=== PATIENT | male | born 2000 | race Hispanic/Latino ===

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

== ENCOUNTER 2021-09-24 14:43 | Inpatient (IN) | payer MEDICAID, OTHER ==
[~2021-09-24] VITALS: Ht 182.9 cm; Wt 104.3 kg
[2021-09-24] MEDS ORDERED: 0.9%NACL 1000ML 1,000 ML IV ONE (15:00)
[2021-09-24 15:08] LABS: BASOPHILS % (AUTO) 0.3 % (0.0-5.0); EOSINOPHILS % (AUTO) 0.1 % (0.0-8.0); HEMATOCRIT 42.4 % (36-48); LYMPHOCYTES % (AUTO) 12.2 % (21.0-51.0); MEAN CORPUSCULAR HGB CONC 35.4 g/dL (32.0-36.0); MONOCYTES % (AUTO) 5.6 % (3.0-13.0); NEUTROPHILS % (AUTO) 81.4 % (40.0-77.0); PLATELET COUNT (AUTO) 195 K/uL (130-400); RED BLOOD CELL COUNT(AUTO) 5.17 MIL/uL (4.00-5.50); RED CELL DISTRIBUTION WIDTH 12.1 % (11.0-15.5); WHITE BLOOD COUNT (AUTO) 15.8 K/uL (4.8-10.8)
[2021-09-24 15:17] LABS: CREATININE 0.9 mg/dL (0.5-1.5); POTASSIUM 3.9 mmol/L (3.5-5.1)
[2021-09-24 15:22] LABS: BILIRUBIN,TOTAL 1.4 mg/dL (0.2-1.0); TOTAL PROTEIN, SERUM 7.5 g/dL (6.0-8.3)
[2021-09-24] MEDS ORDERED: FAMOTIDINE 20MG VIAL IV ONE (16:00)
[2021-09-24] MEDS ORDERED: ONDANSETRON 4MG INJ IVP ONE ×2 (16:00→18:00)
[2021-09-24] MEDS ORDERED: MORPHINE 4 MG SYG IVP ONE ×2 (16:00→18:30)
[2021-09-24] MEDS ORDERED: IOHEXOL-350 75 ML VIAL IV ONE (16:47)
[2021-09-24] MEDS ORDERED: ZOSYN 3.375GM +NS 50ML IV SCH (17:30)
[2021-09-24] MEDS ORDERED: ZOSYN 3.375GM+NS 50ML 50 ML ONE (17:35)
[2021-09-24] MEDS ORDERED: 0.9%NACL 50ML 50 ML IV ONE (17:35)
[2021-09-24 17:51] LABS: APPEARANCE,URINE Clear (CLEAR); BILIRUBIN,URINE Negative (NEGATIVE); COLOR,URINE Yellow (YELLOW); GLUCOSE, URINE (UA) Negative (NEGATIVE); KETONES,URINE Negative (NEGATIVE); LEUKOCYTE ESTERASE ,URINE Negative (NEGATIVE); NITRATE,URINE Negative (NEGATIVE); OCCULT BLOOD,URINE Negative (NEGATIVE); PH,URINE 7.5 (5.0-8.0); PROTEIN,URINE Negative (NEGATIVE); UROBILINOGEN,URINE 0.2 mg/dL (0.2-1.0)
[2021-09-24] MEDS ORDERED: ONDANSETRON 4MG INJ ONE (18:00)
[2021-09-24] MEDS ORDERED: MORPHINE 4 MG SYG ONE (18:03)
[2021-09-24] MEDS ORDERED: MORPHINE 4 MG SYG IV PRN (20:00)
[2021-09-24] MEDS: ZOSYN 3.375GM+NS 50ML 50 ML IV SCH (21:00)
[2021-09-24] MEDS: LACTATED RINGERS 1000ML 1,000 ML IV SCH (21:14)
[2021-09-24] MEDS: FAMOTIDINE 20MG VIAL IV SCH (21:14)
[2021-09-24] MEDS: ONDANSETRON 4MG INJ IV PRN (21:29)
[2021-09-24 22:37] VITALS: BP 111/72
[2021-09-25] VITALS (28 sets, daily range): BP systolic 90–126; BP diastolic 40–82
[2021-09-25] MEDS: MORPHINE 2 MG SYG IV PRN (03:39)
[2021-09-25 04:37] LABS: BASOPHILS % (AUTO) 0.1 % (0.0-5.0); EOSINOPHILS % (AUTO) 0.2 % (0.0-8.0); HEMATOCRIT 41.6 % (42-54); MEAN CORPUSCULAR HEMOGLOBIN 28.6 pg (27.0-33.0); MEAN CORPUSCULAR HGB CONC 34.4 g/dL (32.0-36.0); MEAN CORPUSCULAR VOLUME 83.2 fL (80-100); MONOCYTES % (AUTO) 5.2 % (3.0-13.0); PLATELET COUNT (AUTO) 163 K/uL (130-400); RED CELL DISTRIBUTION WIDTH 12.5 % (11.0-15.5); WHITE BLOOD COUNT (AUTO) 20.6 K/uL (4.8-10.8)
[2021-09-25] MEDS: ZOSYN 3.375GM+NS 50ML 50 ML IV SCH ×3 (04:38→20:48)
[2021-09-25 04:50] LABS: INR 1.17 (0.85-1.15); PROTHROMBIN TIME 12.6 SEC (9.6-11.6)
[2021-09-25] MEDS: LACTATED RINGERS 1000ML 1,000 ML IV SCH ×4 (04:50→23:43)
[2021-09-25 04:51] LABS: PARTIAL THROMBOPLASTIN TIME 27.2 SEC (26.3-35.5)
[2021-09-25 04:55] LABS: CREATININE 1.3 mg/dL (0.5-1.5); MAGNESIUM 1.5 mg/dL (1.80-2.40); PHOSPHORUS 3.1 mg/dL (2.5-4.9); POTASSIUM 3.6 mmol/L (3.5-5.1)
[2021-09-25] MEDS: ONDANSETRON 4MG INJ IV PRN (06:06)
[2021-09-25] MEDS: FAMOTIDINE 20MG VIAL IV SCH ×2 (09:00→20:48)
[2021-09-25] MEDS ORDERED: BUPIVACAINE/PF 0.25% 30ML VIAL IJ ONE (09:06)
[2021-09-25] MEDS ORDERED: SUCCINYLCHOLINE CHLORIDE 20 MG/ML 10 ML VIAL ONE (09:07)
[2021-09-25] MEDS ORDERED: FENTANYL CITRATE PF 50 MCG/1 ML 2ML VIAL ONE ×2 (09:07→09:08)
[2021-09-25] MEDS ORDERED: LIDOCAINE PF 100MG/5ML (2%) SYRINGE 5ML ONE (09:07)
[2021-09-25] MEDS ORDERED: PROPOFOL 10 MG/ML 20ML VIAL IV ONE (09:07)
[2021-09-25] MEDS ORDERED: MIDAZOLAM HCL 1 MG/ML 2ML VIAL ONE (09:07)
[2021-09-25] MEDS ORDERED: NEOSTIGMINE 5MG/5ML SYR IV ONE (09:10)
[2021-09-25] MEDS ORDERED: GLYCOPYRROLATE 0.2 MG/ML 5 ML VIAL ONE (09:11)
[2021-09-25] MEDS ORDERED: ROCURONIUM BROMIDE 10MG/1ML 5ML VL ONE (09:11)
[2021-09-25] MEDS ORDERED: ONDANSETRON 4MG INJ ONE (09:18)
[2021-09-25] MEDS ORDERED: PHENYLEPHRINE HCL 10 MG/ML 1ML VIAL IV ONE (09:24)
[2021-09-25] MEDS ORDERED: ESMOLOL HCL 10 MG/ML 10 ML VIAL ONE (09:56)
[2021-09-25] MEDS ORDERED: KETOROLAC 30MG VIAL (30MG/ML) ONE (10:16)
[2021-09-25] MEDS ORDERED: MEPERIDINE-PF 25 MG/ML SYG ONE (10:16)
[2021-09-25] MEDS ORDERED: MEPERIDINE-PF 25 MG/ML SYG IV PRN (10:30)
[2021-09-25] MEDS ORDERED: ONDANSETRON 4MG INJ IVP PRN (10:30)
[2021-09-25] MEDS ORDERED: MAGNESIUM 2GM PREMIX 50ML 50 ML IV PRN (17:00)
[2021-09-25] MEDS ORDERED: ACETAMINOPHEN 325 MG TAB ONE (20:45)
[2021-09-25] MEDS ORDERED: ACETAMINOPHEN 325 MG TAB PO PRN (21:00)
[2021-09-26] MEDS: LACTATED RINGERS 1000ML 1,000 ML IV SCH (02:07)
[2021-09-26 03:49] VITALS: BP 125/59
[2021-09-26] MEDS: ZOSYN 3.375GM+NS 50ML 50 ML IV SCH ×2 (04:06→13:00)
[2021-09-26] MEDS: MORPHINE 2 MG SYG IV PRN (04:06)
[2021-09-26 05:13] LABS: BASOPHILS % (AUTO) 0.4 % (0.0-5.0); EOSINOPHILS % (AUTO) 0.8 % (0.0-8.0); HEMATOCRIT 38.3 % (42-54); LYMPHOCYTES % (AUTO) 9.7 % (21.0-51.0); MEAN CORPUSCULAR HEMOGLOBIN 28.4 pg (27.0-33.0); MEAN CORPUSCULAR HGB CONC 33.7 g/dL (32.0-36.0); MEAN CORPUSCULAR VOLUME 84.2 fL (80-100); MONOCYTES % (AUTO) 8.3 % (3.0-13.0); NEUTROPHILS % (AUTO) 80.4 % (40.0-77.0); PLATELET COUNT (AUTO) 114 K/uL (130-400); RED BLOOD CELL COUNT(AUTO) 4.55 MIL/uL (4.50-6.20); RED CELL DISTRIBUTION WIDTH 12.5 % (11.0-15.5); WHITE BLOOD COUNT (AUTO) 9.9 K/uL (4.8-10.8)
[2021-09-26 05:27] LABS: CREATININE 1.1 mg/dL (0.5-1.5); MAGNESIUM 2.3 mg/dL (1.80-2.40); POTASSIUM 3.3 mmol/L (3.5-5.1)
[2021-09-26 07:25] VITALS: BP 110/56
[2021-09-26] MEDS ORDERED: POTASSIUM CHLORIDE 10% ELIXIR 20 MEQ/15 ML UDCUP PO PRN (09:00)
[2021-09-26] MEDS ORDERED: LIDOCAINE HCL-MPF 1% 2ML VIAL IV PRN (09:00)
[2021-09-26] MEDS ORDERED: POTASSIUM CHLORIDE 20MEQ/100ML 100 ML IV PRN (09:00)
[2021-09-26] MEDS: FAMOTIDINE 20MG VIAL IV SCH (09:01)
[2021-09-26] MEDS: KCL 20 MEQ ERTAB PO PRN ×3 (11:20→17:10)
[2021-09-26 11:47] VITALS: BP 91/56
[2021-09-26 16:00] VITALS: BP 113/75
[2021-09-26] MEDS ORDERED: TRAM50TA4 PO (18:10)
[2021-09-26] MEDS ORDERED: AUGMENTIN PO (18:12)
== END 2021-09-26 18:40 | disposition home or self-care (01) | DRG 343 ==
LOC: EDSEX 14:43 → EDH 14:43 → OBSVTOIN 14:44 → EDHIP 14:44 → 3AH 21:43
PROVIDERS: ADMIT Internal Medicine; ATTEND Internal Medicine
PROC: 0DTJ4ZZ Resection of Appendix, Percutaneous Endoscopic Approach (ICD-10-PCS; principal; 2021-09-25 09:37)
DX: K35.80 Unspecified acute appendicitis (principal); E11.9 Type 2 diabetes mellitus without complications; Z20.822 Contact with and (suspected) exposure to COVID-19; Z59.7 Insufficient social insurance and welfare support
CPT/HCPCS: 36415; 74177; 80048; 80053; 81003; 83690; 83735; 84100; 85025; 85610; 85730; 86850; 86900; 86901; 87635; 99291; A4344; C9803; G0378; J0330; J1885; J2001; J2175; J2250; J2270; J2370; J2405; J2543; J2704; J2710; J3010; J3475; J3490; J7030; J7120; Q9967